=== PATIENT | male | born 1985 | race Caucasian/White ===

== ENCOUNTER 2017-11-01 06:52 | Observation (INO) | payer BC ==
[2017-10-29 09:26] VITALS: BMI 19.0
[2017-11-01] MEDS ORDERED: CEFAZOLIN/Water 2 GM/20 ML SYRINGE ONE (07:24)
[2017-11-01 07:38] LABS: #Basophils 0.1 thou/uL (0.0-0.2); #Eosinphils 0.2 thou/uL (0.0-0.7); #Lymphocytes 2.1 thou/uL (1.20-3.40); #Monocytes 0.6 thou/uL (0.11-0.59); #Neutrophils 1.7 thou/uL (1.40-6.50); %Basophils 2.2 % (0.0-1.0); %Eosinophils 4.4 % (0.0-10.0); %Lymphocytes 45.4 % (21.0-51.0); %Monocytes 11.8 % (0.0-10.0); %Neutrophils 36.1 % (42.0-75.0); Hemoglobin 13.2 g/dL (14.0-18.0); Mean Corpuscular HGB CONC 34.2 g/dL (32.0-36.0); Mean Corpuscular Hemoglobin 31.3 pg (27.0-31.0); Mean Corpuscular Volume 91.5 fL (78.0-98.0); Mean Platelet Volume 6.7 fL (7.4-10.4); Platelet Count 237 thou/uL (130-400); RBC Distribution Width 11.4 % (11.5-14.5); Red Blood Cell (RBC) Count 4.21 mill/uL (4.70-6.10); White Blood Cell (WBC) Count 4.7 thou/uL (4.8-10.8)
[2017-11-01 07:51] LABS: Anion Gap 9 mmol/L (10-20); BUN (Urea Nitrogen) 10 mg/dL (8.9-20.6); Calc. Creatinine Clearance 121 mL/min (70-130); Calcium 9.2 mg/dL (7.8-10.44); Carbon Dioxide 27 mmol/L (22-29); Chloride 101 mmol/L (98-107); Estimated GFR-MDRD Greater than 90; Glucose 79 mg/dL (70-105); Potassium 4.2 mmol/L (3.5-5.1); Sodium 133 mmol/L (136-145)
[2017-11-01] MEDS ORDERED: Midazolam HCl 2 mg/2 ml Vial ONE (08:06)
[2017-11-01] MEDS ORDERED: Fentanyl 100 MCG/2 ML VIAL ONE ×5 (08:06→11:50)
[2017-11-01] MEDS ORDERED: HYDROmorphone 0.5 MG/0.5 ML SYRINGE ONE ×2 (08:12→09:57)
[2017-11-01] MEDS ORDERED: Sodium Chloride 0.9% 10 ML ONE (09:00)
--- NOTE | 2017-11-01 09:44 | PRG ---
DATE OF SERVICE: 11/01/2017 I reviewed Mr. Vences's diskogram that he got from the outside institution and compared it with the M [facility] scan. The discogram did suggest severe concordant pain at L1-2. Next I reviewed the MRI; however L2-3 is severely structurally deformed and we will plan to proceed with the L1-2 and L2-3 discectomy and fusion as previously planned.
--- NOTE | 2017-11-01 11:12 | OP ---
DATE OF PROCEDURE: 11/01/2017 SURGEON: Houston Ramos M.D. BRUSHER: Gertrudis Brown PA-C. PROCEDURE: Right L1-2 and L2-3 laminectomy, facetectomy, foraminotomy, interbody arthrodesis, intrav ertebral biomechanical device, local morselized autograft, demineralized bone matrix, posterior later al arthrodesis and pedicle screw instrumentation, L1-2 and L2-3. PROCEDURE IN DETAIL: The patient was brought to the operating room and intubated. He was rolled in the prone position on gel-filled chest rolls. Incision made exposing L1 through L3 bilaterally and o ur level was confirmed by x-ray. We performed complete right-sided L1-L2 and L2-3 laminectomy, facet ectomy, and foraminotomy, completely decompressing the neural elements at these levels. The disc spa ce was accessed in this fashion, incised and disk debrided entirely at L1-2 and L2-3. The bony endpl ates were decorticated for the purpose of arthrodesis and appropriately sized intravertebral biomecha nical PEEK device was brought into the field, filled with demineralized bone matrix and local morseli zed autograft, and tapped into place securely at L1-2 and L2-3. Next, pedicle screws were placed at right L1, right L2 and right L3 using lateral fluoroscopic guidance. A tom was secured between the s crews, connected by nuts and compression was applied across both disc spaces. All nuts were final ti ghtened. The wound was then extensively irrigated, immaculate hemostasis was secured. Vancomycin po wder was applied. A combination of demineralized bone matrix and local morselized autograft was laid over the left laminar and posterolateral surfaces for the purpose of arthrodesis and the wound was t hen closed in anatomic layers.
[2017-11-01] MEDS ORDERED: Lidocaine 1% PF 5 ML VIAL ONE (11:54)
[2017-11-01] MEDS ORDERED: Ondansetron HCl/PF 4 MG/2 ML Vial ONE (11:54)
[2017-11-01] MEDS ORDERED: PROPOFOL 200 MG/20 ML VIAL ONE (11:54)
[2017-11-01] MEDS ORDERED: Glycopyrrolate 0.2 MG/ML 5 ML SYRINGE ONE (11:54)
[2017-11-01] MEDS ORDERED: Ketorolac Tromethamine 30 MG/ML VIAL ONE (11:54)
[2017-11-01] MEDS ORDERED: Dexamethasone 20 MG/5 ML VIAL ONE (11:54)
[2017-11-01] MEDS ORDERED: diphenhydrAMINE 50 MG/ML VIAL IVP PRN (12:38)
[2017-11-01] MEDS ORDERED: Promethazine HCl 25 MG/ML VIAL IM PRN (12:38)
[2017-11-01] MEDS ORDERED: HYDROcodone/Acetaminophen 10/325 mg Tablet PO PRN (12:38)
[2017-11-01] MEDS ORDERED: Morphine 4 MG/ML Carpuject SLOW IVP PRN (12:38)
[2017-11-01] MEDS ORDERED: traMADol HCl 50 MG TAB PO PRN ×2 (12:38)
[2017-11-01] MEDS ORDERED: diphenhydrAMINE 25 MG CAP PO PRN (12:38)
[2017-11-01] MEDS ORDERED: Promethazine 25 MG TAB PO PRN (12:38)
[2017-11-01] MEDS ORDERED: Milk Of Magnesia 30 ML UDCUP PO PRN (12:38)
[2017-11-01] MEDS ORDERED: Promethazine HCl 12.5 MG SUPP PR PRN (12:38)
[2017-11-01] MEDS ORDERED: Mag-Al 1200 mg/1200 mg/30 ML UDCUP PO PRN (12:38)
[2017-11-01] MEDS ORDERED: Bisacodyl 10 MG SUPP PR PRN (12:38)
[2017-11-01] MEDS ORDERED: Ondansetron HCl/PF 4 MG/2 ML Vial SLOW IVP PRN (12:40)
[2017-11-01] MEDS ORDERED: Morphine 4 MG/ML VIAL SLOW IVP PRN (12:45)
[2017-11-01] MEDS: tiZANidine HCl 4 MG TAB PO PRN ×2 (13:29→20:52)
[2017-11-01] MEDS: Sodium Chloride 0.9% 1,000 ML IV SCH (13:30)
[2017-11-01] MEDS ORDERED: CEFAZOLIN/Water 2 GM/20 ML SYRINGE SLOW IVP SCH (14:00)
[2017-11-01] MEDS: HYDROcodone/Acetaminophen 10/325 mg Tablet PO PRN ×2 (14:40→20:52)
--- NOTE | 2017-11-01 17:12 | EKG ---
Test Reason : PREOP Blood Pressure : / mmHG Vent. Rate : 062 BPM Atrial Rate : 062 BPM P-R Int : 138 ms QRS Dur : 074 ms QT Int : 406 ms P-R-T Axes : 065 075 063 degrees QTc Int : 412 ms Normal sinus rhythm Early repolarization Normal ECG No previous ECGs available Confirmed by CHELSEA MELO, DR. Rutherford ([id number]) on 11/01/2017 5:11:51 PM Referred By: YANELY Confirmed By:DR. Krish TRAN MD
[2017-11-01] MEDS: CEFAZOLIN/Water 2 GM/20 ML SYRINGE SLOW IVP SCH (18:20)
[2017-11-02] MEDS: CEFAZOLIN/Water 2 GM/20 ML SYRINGE SLOW IVP SCH (00:52)
[2017-11-02] MEDS: Sodium Chloride 0.9% 1,000 ML IV SCH ×2 (02:08→10:03)
[2017-11-02] MEDS: HYDROcodone/Acetaminophen 10/325 mg Tablet PO PRN ×2 (05:18→12:06)
[2017-11-02] MEDS: tiZANidine HCl 4 MG TAB PO PRN ×2 (05:19→12:07)
[2017-11-02 11:55] VITALS: BP 104/62; TEMP 98.3
== END 2017-11-02 15:06 | disposition home or self-care (01) ==
LOC: SDC 06:52 → SJJU 08:00
PROVIDERS: ADMIT Neurological Surgery; ATTEND Neurological Surgery
PROC: 0SG10AJ Fusion of 2 or more Lumbar Vertebral Joints with Interbody Fusion Device, Posterior Approach, Anterior Column, Open Approach (ICD-10-PCS; principal; 2017-11-01)
DX: M51.16 Intervertebral disc disorders with radiculopathy, lumbar region (principal); F17.200 Nicotine dependence, unspecified, uncomplicated
CPT/HCPCS: 36415; 76001; 80048; 85025; 93005; 93010; 96361; 96374; 96375; 96376; A4216; C1713; C1768; G0378; J1100; J1170; J1885; J2001; J2250; J2270; J2405; J2704; J3010; J3370; J3490

== ENCOUNTER 2017-11-17 16:05 | Outpatient (CLI) | payer BC ==
--- NOTE | 2017-11-17 16:41 | RAD ---
TWO VIEWS OF THE LUMBAR SPINE 11/17/17 COMPARISON: None. HISTORY: Lumbar radicular pain, back pain extending into the right hip, prior surgery. FINDINGS: Five lumbar type vertebral bodies are present. Right sided pedicle screws are present at L1, L2, and L3 with vertically oriented interlocking rods. Intervertebral disc devices are present at L1-2 and L2 -3. There is no anterolisthesis or retrolisthesis. There is mild anterior osteophyte formation at L1- 2 and L2-3. No radiographic evidence of hardware failure. IMPRESSION: Multilevel postoperative change within the lumbar spine as detailed above. POS: GABRIELLE
== END 2017-11-17 16:06 | disposition home or self-care (01) ==
LOC: TBSIIMAG 16:05
PROVIDERS: ATTEND Physician Assistant
DX: M54.16 Radiculopathy, lumbar region (principal); Z98.890 Other specified postprocedural states
CPT/HCPCS: 72100

== ENCOUNTER 2018-01-06 14:01 | Outpatient (CLI) | payer BC ==
--- NOTE | 2018-01-06 15:04 | RAD ---
TWO VIEWS LUMBAR SPINE: Date: 01-06-18 History: Intervertebral disc degeneration, lumbar spine. History of surgery. Comparison: 11-17-17 FINDINGS: Again noted are post-surgical changes related to posterior fusion of L1 through L3 with unilateral ri ght sided pedicular screws and posterior rods transfixing the L1 through L3 vertebral bodies. Intradi scal prostheses are again seen at L1-2 and L2-3 levels. No hardware complication is seen. Alignment o f the lumbar spine is within normal limits. The vertebral body heights appear to be within normal stuart its. No fracture or subluxation is seen. IMPRESSION: Stable post-surgical changes lumbar spine. POS: MITZI
== END 2018-01-06 14:02 | disposition home or self-care (01) ==
LOC: TBSIIMAG 14:01
PROVIDERS: ATTEND Neurological Surgery
DX: M51.36 Other intervertebral disc degeneration, lumbar region (principal); Z98.890 Other specified postprocedural states
CPT/HCPCS: 72100

== ENCOUNTER 2018-03-29 13:26 | Outpatient (CLI) | payer BC ==
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
== END 2018-03-29 13:27 | disposition home or self-care (01) ==
LOC: TBSIIMAG 13:26
PROVIDERS: ATTEND Neurological Surgery
DX: M54.16 Radiculopathy, lumbar region (principal); Z98.890 Other specified postprocedural states
CPT/HCPCS: 72100